=== PATIENT | female | born 1980 | race Caucasian/White ===

== ENCOUNTER 2025-05-14 20:17 | Emergency (ER) | payer BC ==
[~2025-05-14] VITALS: Ht 182.9 cm; Wt 79.0 kg
[2025-05-14 20:32] VITALS: O2SAT 100
[2025-05-14 22:02] LABS: CLARITY URINE CLEAR (CLEAR); COLOR URINE YELLOW (YELLOW); GLUCOSE URINE NEGATIVE (NEGATIVE); KETONES URINE NEGATIVE (NEGATIVE); LEUKOCYTE ESTERASE URINE NEGATIVE (NEGATIVE); NITRITE URINE NEGATIVE (NEGATIVE); OCCULT BLOOD URINE NEGATIVE (NEGATIVE); PH URINE 7.0 (4.5-8.0); PROTEIN URINE NEGATIVE (NEGATIVE); SPECIFIC GRAVITY URINE 1.010 (1.005-1.030); UROBILINOGEN URINE 0.2 E.U./dL (0.2-1.0)
[2025-05-14] MEDS: KETOROLAC 30MG/ML VIAL IM ONE (22:02)
[2025-05-15] MEDS ORDERED: MOXI400T31 MT (00:10)
[2025-05-15 01:01] VITALS: BP 108/67; PULSE 74; RESP 15; TEMP 36.6; O2SAT 96
[2025-05-17 14:12] LABS: CHLAMYDIA TRACHOMATIS NAA Negative (Negative); NEISSERIA GONORRHOEAE NAA Negative (Negative)
== END 2025-05-15 01:05 | disposition home or self-care (01) ==
LOC: ER 20:17
DX: R30.9 Painful micturition, unspecified (principal); B96.0 Mycoplasma pneumoniae [M. pneumoniae] as the cause of diseases classified elsewhere; Z87.440 Personal history of urinary (tract) infections
CPT/HCPCS: 99285; 93976; 87491; 87591; 81003; 76870; 96372; J1885